=== PATIENT | male | born 1945 | race Caucasian/White ===

== ENCOUNTER 2022-12-04 18:10 | Inpatient (IN) | payer MEDICAID ==
[~2022-12-04] VITALS: Ht 170.2 cm; Wt 68.0 kg
[2022-12-04 18:34] VITALS: BP_SYST 130
--- NOTE | 2022-12-04 18:37 | NUR ---
Patient triaged. VSS and patient appears in no acute distress at this time. Accompanied by EMT'S, awaiting available bed, and MD notified of need for MSE.
--- NOTE | 2022-12-04 19:17 | NUR ---
PT ENDORSED TRAVIS JULES. ALL QUESTIONS AND CONCERNS ADDRESSED. PT PLACED IN GOWN AND ON MONITOR.
--- NOTE | 2022-12-04 19:20 | NUR ---
Received report at this time.
--- NOTE | 2022-12-04 19:45 | NUR ---
Notified ER provider that patient heart rate increases and decreases (80's to 130's) and appears to be uncontrolled afib with occasional pvcs.
[2022-12-04] MEDS ORDERED: DILTIAZEM HCL 60 MG TABLET PO ONE (20:30)
[2022-12-04 20:53] LABS: BASOPHILS % (AUTO) 0.1 % (0.0-2.0); EOSINOPHILS % (AUTO) 0.1 % (0.0-4.0); HEMATOCRIT 40.8 % (36-54); HEMOGLOBIN 13.7 g/dL (14.0-18.0); LYMPHOCYTES # (AUTO) 0.3 K/uL (1.0-5.5); LYMPHOCYTES % (AUTO) 5.5 % (20.5-51.5); MEAN CORPUSCULAR HEMOGLOBIN 35 pg (27-31); MEAN CORPUSCULAR HGB CONC 34 % (32-36); MEAN CORPUSCULAR VOLUME 104 fL (79.0-98.0); MONOCYTES # (AUTO) 0.6 K/uL (0.0-1.0); MONOCYTES % (AUTO) 12.4 % (1.7-9.3); NEUTROPHILS # (AUTO) 3.9 K/uL (1.8-7.7); NEUTROPHILS % (AUTO) 81.9 % (40.0-70.0); PLATELET COUNT (AUTO) 124 K/uL (130-430); RED BLOOD CELL COUNT(AUTO) 3.92 MIL/uL (4.2-6.2); RED CELL DISTRIBUTION WIDTH 13.3 % (9.0-15.0); WHITE BLOOD COUNT (AUTO) 4.8 K/uL (4.8-10.8)
--- NOTE | 2022-12-04 20:56 | NUR ---
COVID SAMPLE COLLECTED AND SENT TO LAB
[2022-12-04 20:57] LABS: ANION GAP 8 (5-15); CALCIUM 9.4 mg/dL (8.4-11.0); CHLORIDE 97 mmol/L (98-107); CREATININE 1.51 mg/dL (0.55-1.30); GLUCOSE 108 mg/dL (70-99); UREA NITROGEN, BLOOD 34 mg/dL (8-21)
[2022-12-04 21:03] LABS: ALANINE AMINOTRANSFERASE 41 U/L (12-78); ALBUMIN 3.3 g/dL (3.4-4.8); ASPARTATE AMINOTRANSFERASE 48 U/L (10-37); TOTAL BILIRUBIN 1.9 mg/dL (0.0-1.0)
[2022-12-04 21:04] LABS: ALCOHOL, BLOOD < 3 mg/dL (<10)
--- NOTE | 2022-12-04 23:56 | NUR ---
Admit bed requested Patient will be admitted to care of Idalia Schilling Admitted to TELE unit. Diagnosis A-FIB Inpatient (Yes or No) YES Observation (Yes or No) NO Orientation concerns or request close to nursing station (Yes or No) YES Covid Status NEGATIVE On vent or bipap NO Isolation requirements NO Needs a sitter NO From Home (Yes or if No enter name of facility) YES Requires Dialysis (Yes or No) NO Med Rec Completed (Yes of No) PENDING
--- NOTE | 2022-12-05 04:15 | NUR ---
Patient will be admitted to care of Cor[facility] Centeno Admitted to tele unit. Will go to room 118 B. Belongings list completed. Complete and up to date summary report printed. SBAR report given at bedside to nurse Álvarez with the opportunity for questions.
[2022-12-05 04:51] VITALS: BP_SYST 136
--- NOTE | 2022-12-05 06:14 | NUR ---
CONSULTATION PAGED REASON FOR CONSULTATION: A FIB WAS CONSULT CALLED? YES PERSON WHO WAS NOTIFIED: Lexi NEGRON CONSULTING PHYSICIAN: Lexi NEGRON CAR SALES REPRESENTATIVE SPECIALTY: CARDIO CAR SALES REPRESENTATIVE PHONE NUMBER: [phone] REQUESTING PHYSICIAN: RADHA
[2022-12-05] MEDS ORDERED: LORazepam 2 MG/ML VIAL IVP PRN (08:15)
[2022-12-05] MEDS ORDERED: ACETAMINOPHEN 325 MG TABLET PO PRN ×2 (08:15→08:30)
[2022-12-05] MEDS ORDERED: MORPHINE 2 MG/ML INJ. SYRINGE IVP PRN ×2 (08:15)
[2022-12-05] MEDS ORDERED: ZOLPIDEM TARTRATE 5 MG TABLET PO PRN (08:15)
[2022-12-05] MEDS ORDERED: DOCUSATE SODIUM 100 MG CAPSULE PO PRN (08:15)
[2022-12-05] MEDS ORDERED: MUPIROCIN 2% TOPICAL OINTMENT 22 GM NS PRN (08:15)
[2022-12-05] MEDS ORDERED: POTASSIUM CHLORIDE 20 MEQ TAB.PRT.SR PO PRN (08:15)
[2022-12-05] MEDS ORDERED: ONDANSETRON HCL 4 MG/2 ML VIAL IVP PRN (08:15)
[2022-12-05] MEDS ORDERED: NALOXONE HCL 0.4 MG/ML AMP (NARCAN) IVP PRN ×2 (08:15)
--- NOTE | 2022-12-05 10:00 | NUR ---
IV PLACEMENT:IV IN RIGHT ANTECUBITAL INFILTRATED,& REMOVED. # 22 gauge angiocath placed to RIGHT FOREARM. Use of asceptic technique. Opsite placed over site. Blood return noted. Flushed with 10 cc of normal saline. No evidence of infiltration noted. Patient tolerated .
[2022-12-05] MEDS: FUROSEMIDE 20 MG/2 ML VIAL IVP SCH (10:22)
[2022-12-05] MEDS: METOPROLOL TARTRATE 25 MG TABLET PO SCH ×3 (10:23→21:00)
[2022-12-05] MEDS: ENOXAPARIN SODIUM 30 MG/0.3 ML SYRINGE SUBCUT SCH (10:23)
[2022-12-05] MEDS: NACL 0.9% 1,000 ML IV SCH (10:40)
[2022-12-05] MEDS: MAGNESIUM SULFATE 50 ML IV PRN (10:40)
[2022-12-05 11:59] VITALS: BP_SYST 107
[2022-12-05 16:36] VITALS: BP_SYST 107
--- NOTE | 2022-12-05 17:32 | NUR ---
A/OX3,VSS,RESTING WELL IN BED,IVF CONTINUE INFUSING,NEEDS ATTENDED,CALL LIGHT & PERSONAL ITEMS WITHIN PT REACH,SAFETY MAINTAINED.MAG LEVEL 1.6 PER TODAY LAB GIVE MAG RIDER 2 GM IV PRN ORDER FOR MAG BELOW 1.8,HOURLY ROUNDS MADE NO SIGNIFICANT EVENT THROUGHOUT AM SHIFT,CONTINUE TO MONITOR PT.
[2022-12-05 22:00] VITALS: BP_SYST 99
--- NOTE | 2022-12-05 23:04 | NUR ---
Patient in bed.No acute distress noted. No complaint of pain or discomfort. Will continue to monitor.
[2022-12-06 00:25] VITALS: BP_SYST 101
[2022-12-06] MEDS: NACL 0.9% 1,000 ML IV SCH ×2 (01:13→21:18)
[2022-12-06 07:19] LABS: BASOPHILS % (AUTO) 0.9 % (0.0-2.0); EOSINOPHILS % (AUTO) 1.7 % (0.0-4.0); HEMATOCRIT 39.3 % (36-54); HEMOGLOBIN 13.3 g/dL (14.0-18.0); LYMPHOCYTES # (AUTO) 0.7 K/uL (1.0-5.5); LYMPHOCYTES % (AUTO) 27.2 % (20.5-51.5); MEAN CORPUSCULAR HEMOGLOBIN 35 pg (27-31); MEAN CORPUSCULAR HGB CONC 34 % (32-36); MEAN CORPUSCULAR VOLUME 105 fL (79.0-98.0); MONOCYTES # (AUTO) 0.5 K/uL (0.0-1.0); MONOCYTES % (AUTO) 21.5 % (1.7-9.3); NEUTROPHILS # (AUTO) 1.2 K/uL (1.8-7.7); NEUTROPHILS % (AUTO) 48.7 % (40.0-70.0); PLATELET COUNT (AUTO) 108 K/uL (130-430); RED BLOOD CELL COUNT(AUTO) 3.75 MIL/uL (4.2-6.2); RED CELL DISTRIBUTION WIDTH 13.9 % (9.0-15.0); WHITE BLOOD COUNT (AUTO) 2.5 K/uL (4.8-10.8)
[2022-12-06 08:28] LABS: ANION GAP 8 (5-15); CALCIUM 8.3 mg/dL (8.4-11.0); CHLORIDE 99 mmol/L (98-107); CREATININE 0.69 mg/dL (0.55-1.30); GLUCOSE 80 mg/dL (70-99); UREA NITROGEN, BLOOD 24 mg/dL (8-21)
[2022-12-06] MEDS: FUROSEMIDE 20 MG/2 ML VIAL IVP SCH (09:37)
[2022-12-06] MEDS: ENOXAPARIN SODIUM 30 MG/0.3 ML SYRINGE SUBCUT SCH (09:37)
[2022-12-06] MEDS ORDERED: REGADENOSON 0.4 MG/5 ML SYRINGE IVP ONE (10:15)
[2022-12-06] MEDS: METOPROLOL TARTRATE 25 MG TABLET PO SCH ×2 (12:21→21:13)
[2022-12-06 12:50] VITALS: BP_SYST 134
[2022-12-06 13:40] VITALS: BP_SYST 107
[2022-12-06 15:40] VITALS: BP_SYST 107
--- NOTE | 2022-12-06 16:26 | NUR ---
>>>PT NOTES<<< PT EVAL COMPLETED. PLEASE SEE EVAL FOR DETAILS.
--- NOTE | 2022-12-06 18:20 | NUR ---
PT AWAKE,ALERT,CONFUSED AND FORGETFUL AT TIMES,ORDER RECEIVED TO D/C PT HOWEVER,PT HAS WEAKNESS IN BLE WHEN ASSISTED UP IN W/C. CALLED AND NOTIFIED,PT EVAL DONE PER ORDER.PT NOT CLEARED TO D/C YET PER PHYSICAL THERAPIST D/T WEAKNESS.NEEDS ATTENDED,CALL LIGHT & PERSONAL ITEMS WITHIN PT REACH SAFETY MAINTAINED.CONTINUE TO MONITOR PT.
--- NOTE | 2022-12-06 19:00 | NUR ---
IV PLACEMENT:PT FOUND PULLED OUT IV IN LEFT ARM, #22 gauge angiocath placed to LFA. Use of asceptic technique. Opsite placed over site. Blood return noted. Flushed with 10 cc of normal saline. No evidence of infiltration noted. Patient tolerated WELL.
--- NOTE | 2022-12-06 19:45 | NUR ---
CHANGE OF SHIFT: endorsed pt.by day shift.pt.awake,alert,follow simple commands but with periods of confusion. on fall risk precaution,bed alarm on.VS checked,IV reconnected on rt.forearm. on cardiac cath technician and shows atrial fib.uses urinal. on bed rest, reminded pt.to use call light for help.on room air. repositioned and pulled up in bed.
[2022-12-06 20:00] VITALS: BP_SYST 100
--- NOTE | 2022-12-06 22:00 | NUR ---
NOTES: due medication given. pt.voided per urinal. bed alarm on.
[2022-12-07 00:58] VITALS: BP_SYST 111
--- NOTE | 2022-12-07 01:00 | NUR ---
NOTES: pt.sleeping when checked. cardiac pattern unchanged.
--- NOTE | 2022-12-07 02:15 | NUR ---
NOTES PATIENT'S K-3.3, K-DUR 40 MEQ PO GIVEN ORDERED PRN FOR K <3.5. WILL CONTINUE TO MONITOR.
--- NOTE | 2022-12-07 06:45 | NUR ---
CLOSING NOTES PATIENT AWAKE, NO COMPLAINTS AT THIS TIME, VITALS STABLE. ALL NEEDS ATTENDED TO. SAFETY MEASURES MAINTAINED. CALL LIGHT PLACED WITHIN REACH.
--- NOTE | 2022-12-07 08:00 | NUR ---
Patient is a/o x to place and self. Pt is is irritable, does not follow commands at times. Does not want to be bothered. Pt got upset when belongings were put together on top of drawer. Pt does not communicate in complete Serbian sentences. Unable to fully assess verbal communication. Will try again later. Otherwise, pt vital signs stable, denies any pain and does not appear to be in distress. Afib on tele monitor.
[2022-12-07 08:06] VITALS: BP_SYST 119
[2022-12-07 08:15] LABS: BASOPHILS % (AUTO) 0.8 % (0.0-2.0); EOSINOPHILS % (AUTO) 1.9 % (0.0-4.0); HEMATOCRIT 36.9 % (36-54); HEMOGLOBIN 12.5 g/dL (14.0-18.0); LYMPHOCYTES # (AUTO) 0.5 K/uL (1.0-5.5); LYMPHOCYTES % (AUTO) 22.6 % (20.5-51.5); MEAN CORPUSCULAR HEMOGLOBIN 35 pg (27-31); MEAN CORPUSCULAR HGB CONC 34 % (32-36); MEAN CORPUSCULAR VOLUME 104 fL (79.0-98.0); MONOCYTES # (AUTO) 0.4 K/uL (0.0-1.0); MONOCYTES % (AUTO) 17.8 % (1.7-9.3); NEUTROPHILS # (AUTO) 1.3 K/uL (1.8-7.7); NEUTROPHILS % (AUTO) 56.9 % (40.0-70.0); PLATELET COUNT (AUTO) 118 K/uL (130-430); RED BLOOD CELL COUNT(AUTO) 3.55 MIL/uL (4.2-6.2); RED CELL DISTRIBUTION WIDTH 13.7 % (9.0-15.0); WHITE BLOOD COUNT (AUTO) 2.3 K/uL (4.8-10.8)
[2022-12-07 08:36] LABS: CALCIUM 8.4 mg/dL (8.4-11.0); CHLORIDE 103 mmol/L (98-107); CREATININE 0.77 mg/dL (0.55-1.30); GLUCOSE 83 mg/dL (70-99); UREA NITROGEN, BLOOD 23 mg/dL (8-21)
[2022-12-07 08:41] LABS: ANION GAP < 3 (5-15)
[2022-12-07] MEDS: FUROSEMIDE 20 MG/2 ML VIAL IVP SCH (09:11)
[2022-12-07] MEDS: METOPROLOL TARTRATE 25 MG TABLET PO SCH ×2 (09:13→21:00)
[2022-12-07] MEDS: ENOXAPARIN SODIUM 30 MG/0.3 ML SYRINGE SUBCUT SCH (09:13)
[2022-12-07] MEDS: NACL 0.9% 1,000 ML IV SCH (11:27)
[2022-12-07] MEDS: MAGNESIUM SULFATE 50 ML IV PRN (11:27)
[2022-12-07 12:26] VITALS: BP_SYST 102
--- NOTE | 2022-12-07 16:00 | NUR ---
PAGED DR. GARCIA X2 AND INFORMED THAT PT IS NOT ABLE TO D/C, PT DOES NOT HAVE HEALTH INSURANCE AND SW IS WORKING ON IT. CM RECOMMENDS SNF PLACEMENT. OTHERWISE, PT IS STABLE, NO DISTRESS, AND DENIES ANY PAIN.
[2022-12-07 16:49] VITALS: BP_SYST 102
[2022-12-07 20:10] VITALS: BP_SYST 101
--- NOTE | 2022-12-07 20:10 | NUR ---
PM ASSESSMENT; -Pt is a/ox1, resting in bed. No s/s any pain,sob, or any acute distress noted. IV site patent, no s/s any infiltration noted. Unable to discuss poc d/t cognitive limitation. All safety measures in place. Urinal is at bedside. Call light w/in reach,side rails x3. cont to monitor pt.
--- NOTE | 2022-12-08 00:16 | NUR ---
ROUNDS; -Pt is resting in bed. No s/s any pain,sob, or any acute distress noted. IVF infusing well, no s/s any infiltration noted. All safety measures in place. Urinal is at bedside. Call light w/in reach,side rails x3. cont to monitor pt.
[2022-12-08 01:08] VITALS: BP_SYST 119
[2022-12-08] MEDS: NACL 0.9% 1,000 ML IV SCH ×2 (06:16→23:55)
--- NOTE | 2022-12-08 06:48 | NUR ---
ROUNDS; -Pt is resting in bed. No s/s any pain,sob, or any acute distress noted. IVF infusing well, no s/s any infiltration noted. All safety measures in place. Urinal is at bedside. Call light w/in reach,side rails x3. cont to monitor pt. Addendum: 12/08/22 at 0650 by Jolene Gomez RN RN CORRECTION-WRONG TIME ENTRY; IT'S ROUND AT 0430;NOT AT 0648
--- NOTE | 2022-12-08 06:48 | NUR ---
CLOSING NOTES; -Pt is resting in bed. No s/s any pain,sob, or any acute distress noted. IV site patent, IVF infusing well, no s/s any infiltration noted. All safety measures in place. Urinal is at bedside. Call light w/in reach,side rails x3. Pt's condition stable. Will endorse to next nurse to cont care.
[2022-12-08 07:08] LABS: BASOPHILS % (AUTO) 1.1 % (0.0-2.0); EOSINOPHILS # (AUTO) 0.1 K/uL (0.0-0.4); EOSINOPHILS % (AUTO) 3.1 % (0.0-4.0); HEMATOCRIT 39.6 % (36-54); HEMOGLOBIN 13.4 g/dL (14.0-18.0); LYMPHOCYTES # (AUTO) 0.7 K/uL (1.0-5.5); LYMPHOCYTES % (AUTO) 27.9 % (20.5-51.5); MEAN CORPUSCULAR HEMOGLOBIN 35 pg (27-31); MEAN CORPUSCULAR HGB CONC 34 % (32-36); MEAN CORPUSCULAR VOLUME 104 fL (79.0-98.0); MONOCYTES # (AUTO) 0.5 K/uL (0.0-1.0); MONOCYTES % (AUTO) 19.4 % (1.7-9.3); NEUTROPHILS # (AUTO) 1.2 K/uL (1.8-7.7); NEUTROPHILS % (AUTO) 48.5 % (40.0-70.0); PLATELET COUNT (AUTO) 135 K/uL (130-430); RED CELL DISTRIBUTION WIDTH 13.5 % (9.0-15.0); WHITE BLOOD COUNT (AUTO) 2.5 K/uL (4.8-10.8)
--- NOTE | 2022-12-08 07:30 | NUR ---
REPORT RECEIVED FROM SAI ROBLES. PT IS ASLEEP BUT AROUSABLE, NO SIGN OF DISTRESS, VS STABLE, AFIB ON TELE. IV FLUIDS INFUSING. ASSUMING CARE FOR PT.
[2022-12-08 07:33] LABS: ANION GAP 1 (5-15); CALCIUM 8.6 mg/dL (8.4-11.0); CHLORIDE 101 mmol/L (98-107); CREATININE 0.79 mg/dL (0.55-1.30); GLUCOSE 81 mg/dL (70-99); UREA NITROGEN, BLOOD 22 mg/dL (8-21)
[2022-12-08 08:02] VITALS: BP_SYST 135
[2022-12-08] MEDS: FUROSEMIDE 20 MG/2 ML VIAL IVP SCH (08:52)
[2022-12-08] MEDS: METOPROLOL TARTRATE 25 MG TABLET PO SCH ×2 (08:52→21:16)
[2022-12-08] MEDS: ENOXAPARIN SODIUM 30 MG/0.3 ML SYRINGE SUBCUT SCH (08:53)
[2022-12-08 11:30] VITALS: BP_SYST 124
--- NOTE | 2022-12-08 13:00 | NUR ---
PT GOT UP AND AMBULATED TO THE BATHROOM. HAD LARGE BROWN BM. PT VERY UNSTEADY BALANCE AND ALMOST SLIPPED. AWAITING FOR PT TO EVALUATE PT. PT WAS MAX ASSIST YESTERDAY PER PT. AWAITING TO BE SEEN BY PT TO BE RE EVALUATED.
[2022-12-08 16:54] VITALS: BP_SYST 135
--- NOTE | 2022-12-08 18:00 | NUR ---
PT REMAINS STABLE, NO SIGNIFICANT CHANGES. POSSIBLE D/C TOMORROW. PER PT NOTES, PT WILL NEED FWW AND PT DID FAIR TODAY. PT WAS ABLE TO AMBULATE.
[2022-12-08 19:40] VITALS: BP_SYST 118
--- NOTE | 2022-12-08 19:40 | NUR ---
PM ASSESSMENT; -Pt is a/ox1-2, resting in bed. No s/s any pain,sob, or any acute distress noted. IV site patent, no s/s any infiltration noted. Unable to discuss poc d/t cognitive limitation. All safety measures in place. Urinal is at bedside. Call light w/in reach,side rails x3. cont to monitor pt.
--- NOTE | 2022-12-09 01:10 | NUR ---
ROUNDS; -Pt is resting in bed. No s/s any pain,sob, or any acute distress noted. IVF infusing well, no s/s any infiltration noted. All safety measures in place. Emptied 250ml, pt missed and wet the bed. changed and provided perineal care, now pt is cleaned and dry. Urinal is at bedside. Call light w/in reach,side rails x3. cont to monitor pt.
[2022-12-09 01:11] VITALS: BP_SYST 112
--- NOTE | 2022-12-09 04:22 | NUR ---
ROUNDS; -Pt is asleep. No s/s any pain,sob, or any acute distress noted. All safety measures in place. Urinal is at bedside. Call light w/in reach,side rails x3. cont to monitor p
--- NOTE | 2022-12-09 06:32 | NUR ---
CLOSING NOTES; -Pt is resting in bed. No s/s any pain,sob, or any acute distress noted. IV site patent, IVF infusing well, no s/s any infiltration noted. All safety measures in place. Urinal is at bedside. Call light w/in reach,side rails x3. Pt's condition stable. Will endorse to next nurse to cont care and to be discharge in the morning.
--- NOTE | 2022-12-09 07:30 | NUR ---
OPENING NOTES: RECEIVED BEDSIDE SBAR FROM PM SHIFT NURSE, PATIENT STABLE RESTING WITH EYES CLOSED NO S/S OF DISTRESS, IV INTACT, NON LABOR BREATHING, BED AT LOW AND LOCKED POSITION, CALL LIGHT IN REACH, WILL CONT TO MONITOR PATIENT PER ORDERS.
[2022-12-09 08:01] VITALS: BP_SYST 138
[2022-12-09 08:33] LABS: ANION GAP 5 (5-15); CALCIUM 8.7 mg/dL (8.4-11.0); CHLORIDE 100 mmol/L (98-107); CREATININE 0.75 mg/dL (0.55-1.30); GLUCOSE 96 mg/dL (70-99); UREA NITROGEN, BLOOD 24 mg/dL (8-21)
[2022-12-09 08:35] LABS: BASOPHILS % (AUTO) 1.3 % (0.0-2.0); EOSINOPHILS # (AUTO) 0.1 K/uL (0.0-0.4); EOSINOPHILS % (AUTO) 2.8 % (0.0-4.0); HEMATOCRIT 41.7 % (36-54); HEMOGLOBIN 14.1 g/dL (14.0-18.0); LYMPHOCYTES # (AUTO) 0.7 K/uL (1.0-5.5); LYMPHOCYTES % (AUTO) 25.8 % (20.5-51.5); MEAN CORPUSCULAR HEMOGLOBIN 35 pg (27-31); MEAN CORPUSCULAR HGB CONC 34 % (32-36); MEAN CORPUSCULAR VOLUME 104 fL (79.0-98.0); MONOCYTES # (AUTO) 0.4 K/uL (0.0-1.0); MONOCYTES % (AUTO) 15.1 % (1.7-9.3); NEUTROPHILS # (AUTO) 1.5 K/uL (1.8-7.7); PLATELET COUNT (AUTO) 170 K/uL (130-430); RED CELL DISTRIBUTION WIDTH 13.4 % (9.0-15.0)
[2022-12-09] MEDS: ENOXAPARIN SODIUM 30 MG/0.3 ML SYRINGE SUBCUT SCH (08:59)
[2022-12-09] MEDS: METOPROLOL TARTRATE 25 MG TABLET PO SCH ×2 (08:59→22:04)
[2022-12-09 09:10] LABS: WHITE BLOOD COUNT (AUTO) 2.8 K/uL (4.8-10.8)
[2022-12-09] MEDS: FUROSEMIDE 20 MG/2 ML VIAL IVP SCH (09:18)
[2022-12-09 12:30] VITALS: BP_SYST 121
[2022-12-09] MEDS: NACL 0.9% 1,000 ML IV SCH (13:22)
--- NOTE | 2022-12-09 18:19 | NUR ---
CLOSING NOTES: PATIENT REMAINS STABLE TODAY NO S/S OF DISTRESS, NON LABOR BREATHING, IV INTACT BED AT LOW AND LOCKED POSITION CALL LIGHT IN REACH ALL SAFETY CHECKS DONE THOUGHT THE DAY, WILL GIVE PM SHIFT NURSE BEDSIDE SBAR.
[2022-12-09 20:28] VITALS: BP_SYST 96
--- NOTE | 2022-12-10 00:02 | NUR ---
pt resting in bed, Ambien administer earlier due to noted increased agitation
[2022-12-10 00:05] VITALS: BP_SYST 102
[2022-12-10 04:00] VITALS: BP_SYST 134
[2022-12-10] MEDS: NACL 0.9% 1,000 ML IV SCH ×2 (06:24→21:17)
[2022-12-10 06:45] LABS: BASOPHILS % (AUTO) 1.1 % (0.0-2.0); EOSINOPHILS # (AUTO) 0.1 K/uL (0.0-0.4); HEMATOCRIT 42.5 % (36-54); HEMOGLOBIN 14.3 g/dL (14.0-18.0); LYMPHOCYTES # (AUTO) 0.9 K/uL (1.0-5.5); LYMPHOCYTES % (AUTO) 37.6 % (20.5-51.5); MEAN CORPUSCULAR HEMOGLOBIN 35 pg (27-31); MEAN CORPUSCULAR HGB CONC 34 % (32-36); MEAN CORPUSCULAR VOLUME 105 fL (79.0-98.0); MONOCYTES # (AUTO) 0.3 K/uL (0.0-1.0); MONOCYTES % (AUTO) 14.2 % (1.7-9.3); NEUTROPHILS % (AUTO) 44.1 % (40.0-70.0); PLATELET COUNT (AUTO) 194 K/uL (130-430); RED BLOOD CELL COUNT(AUTO) 4.05 MIL/uL (4.2-6.2)
--- NOTE | 2022-12-10 06:56 | NUR ---
pt resting in room,, transferred to 120 A to be close to the nurse station due to pt found standing, gait unsteady and almost falling down. speech still incoherent. bed alarm on, safety precautions maintained.
[2022-12-10 07:17] LABS: ANION GAP 2 (5-15); CALCIUM 8.7 mg/dL (8.4-11.0); CHLORIDE 100 mmol/L (98-107); CREATININE 0.88 mg/dL (0.55-1.30); GLUCOSE 90 mg/dL (70-99); UREA NITROGEN, BLOOD 28 mg/dL (8-21)
--- NOTE | 2022-12-10 07:44 | NUR ---
OPENING NOTES: RECEIVED BEDSIDE SBAR FROM PM SHIFT NURSE, PATIENT IS RESTING WELL IN BED WITH EYES CLOSED NO S/S OF ANY DISTRESS, IV INTACT, NON LABOR BREATHING, BED AT LOCKED AND LOW POSITION CALL LIGHT IN REACH WILL CONT TO MONITOR PATIENT PER ORDERS.
[2022-12-10] MEDS: ENOXAPARIN SODIUM 30 MG/0.3 ML SYRINGE SUBCUT SCH (08:44)
[2022-12-10] MEDS: METOPROLOL TARTRATE 25 MG TABLET PO SCH ×2 (08:44→21:00)
[2022-12-10 09:33] LABS: WHITE BLOOD COUNT (AUTO) 2.4 K/uL (4.8-10.8)
[2022-12-10] MEDS: FUROSEMIDE 20 MG/2 ML VIAL IVP SCH (10:10)
[2022-12-10 11:37] VITALS: BP_SYST 101
--- NOTE | 2022-12-10 14:03 | NUR ---
Dietitian Recommendations * Continue on cardiac diet * Ordered: Ensure HP * Send snacks in between meals; RD noted in computrition GS, MPH, RD Please refer to RD Assessment for further details. Thanks! Addendum: 12/10/22 at [address] Amended: Links added.
--- NOTE | 2022-12-10 15:16 | NUR ---
PATIENT RESTING WITH EYES CLOSED CALL LIGHT IN REACH, WILL CONT TO MONITOR PER ORDERS
[2022-12-10 16:56] VITALS: BP_SYST 104
--- NOTE | 2022-12-10 18:35 | NUR ---
CLOSING NOTES: PATIENT REMAINED STABLE THOUGHT THE DAY, NO S/S OF ANY DISTRESS, RESTING WELL IN BED WATCHING TV, ALL SAFETY CHECKS DONE THOUGHT THE DAY, BED AT LOW AND LOCKED POSITION CALL LIGHT IN REACH, WILL GIVE PM SHIFT NURSE BEDSIDE SBAR,
--- NOTE | 2022-12-10 19:49 | NUR ---
RECEIVED PT LYING IN BED, NO DISTRESS NOTED, DENIES PAIN. AAOX1. GARBLED SPEECH. IV TO RUE SITE CDI. LUNG SOUND CLEAR. USING URINAL. ABD SOFT. DRYNESS NOTED TO BLE. SCAB NOTED TO LLE. COOLNESS NOTED TO BLE UPON LIGHT TOUCH.
[2022-12-10 20:00] VITALS: BP_SYST 105
[2022-12-11 01:07] VITALS: BP_SYST 101
[2022-12-11 08:00] VITALS: BP_SYST 130
--- NOTE | 2022-12-11 08:00 | NUR ---
Initial notes Received patient A/Ox1, resting in bed, respiration even and unlabored, no sings of distress. IV site patent patent no signs of distress. All safety precaution secured, bed in low position, call light w/in reached
[2022-12-11] MEDS ORDERED: METO25TA6 PO (08:42)
[2022-12-11] MEDS ORDERED: ASPI-1457 PO (08:42)
[2022-12-11] MEDS: FUROSEMIDE 20 MG/2 ML VIAL IVP SCH (09:00)
[2022-12-11] MEDS: METOPROLOL TARTRATE 25 MG TABLET PO SCH (09:47)
[2022-12-11] MEDS: ENOXAPARIN SODIUM 30 MG/0.3 ML SYRINGE SUBCUT SCH (09:48)
--- NOTE | 2022-12-11 10:30 | NUR ---
Patient ambulate out of bed to restroom, IV out with catheter intact applied pressure, bleeding stop.
[2022-12-11 10:52] VITALS: BP_SYST 109
--- NOTE | 2022-12-11 14:18 | NUR ---
ROUNDS LATE ENTRY 12/09/21 IN THE ROOM WITH THE PATIENT. PATIENT IS AWAKE AND ALERT. INFORMED PATIENT THAT HE WILL BE DISCHARGE TODAY. PATIENT REFUSED TO PROVIDE INFORMATION OF HIS ADDRESS OR WHERE HE WANTS TO BE DROPPED OFF.
--- NOTE | 2022-12-11 14:32 | NUR ---
Electrical Sign Servicer LATE ENTRY++++++++++++++++++++++++++++++++ NETWORK LIAISON met with pt. at bedside on 12/05. Pt. is a return pt., homeless, no family or friends as a support. Pt. speaks in a very low tone, and is unable to list any possible contacts or locations to where he would like to go upon discharge. NETWORK LIAISON saw pt. again on 12/07. Pt still unable to communicate any type of location to discharge to . NETWORK LIAISON spoke to Rn. Good who feels pt. is weak and needs a PT. Evsaurabh. Pt. will see PT. NETWORK LIAISON provided pt. with a change of clothing. Today, 12/11, NETWORK LIAISON learned in bed huddle pt. needs to leave hospital as he is able to walk and move about. NETWORK LIAISON met with pt. at bedside NETWORK LIAISON is calling the 211, [phone] attempting to get a motel voucher. NETWORK LIAISON has received a couple of phone calls from the Rn. station asking when this pt. is going to leave. NETWORK LIAISON explained to Charge that her and Anisha HENRY went in to speak to pt. Pt had no clue where he wanted an Uber to take him. NETWORK LIAISON and Anisha asked pt. several different ways if there was someone we could call for pt. , where did he want to go, but pt. had no idea where he wanted to be taken to. NETWORK LIAISON continued to look for homeless shelters and remains on hold for the 211/ [phone] number.
[2022-12-11 14:35] VITALS: BP_SYST 109
--- NOTE | 2022-12-11 15:25 | NUR ---
Patient ambulate off unit with belongings, leaving against medical advice
== END 2022-12-11 15:25 | disposition left against medical advice (07) | DRG 201 ==
LOC: EDBD 18:10 → SED 18:10 → STU 23:53
PROVIDERS: ADMIT General Practice; ATTEND General Practice
DX: I48.91 Unspecified atrial fibrillation (principal); N17.0 Acute kidney failure with tubular necrosis; I50.43 Acute on chronic combined systolic (congestive) and diastolic (congestive) heart failure; E44.1 Mild protein-calorie malnutrition; I11.0 Hypertensive heart disease with heart failure; E80.6 Other disorders of bilirubin metabolism; Z20.822 Contact with and (suspected) exposure to COVID-19; Z68.23 Body mass index [BMI] 23.0-23.9, adult; Z59.00 Homelessness unspecified
CPT/HCPCS: 36415; 70450-TC; 71045; 76376; 80048; 80053; 82550; 83036; 83735; 83880; 84484; 85025; 93005; 93017; 93306; 97112-GP; 97116-GP; 97530-GP; 99285; A9500; G0378; G0482; J1650; J1940; J2270; J2785; J3475